=== PATIENT | male | born 1965 | race Caucasian/White ===

== ENCOUNTER → 2016-11-09 | Outpatient (CLI) | payer OTHER ==
[~2016-11-09] MED LIST: LIDOCAINE 1% MDV 20ML VIAL As Ordered ONE
--- NOTE | 2016-11-09 17:56 | REP ---
RIGHT THYROID FINE-NEEDLE ASPIRATION: The procedure was performed by ROYAL Paiz under the direct supervision of Dr. Moraes. The procedure along with its risks, benefits, and complications were discussed with the patient prior to the examination. Informed consent was obtained both verbally and written. The patient was identified in the ultrasound suite and placed in a supine position. A procedural time out was performed to ensure that the correct, site and procedure were being performed. Using real-time ultrasonography, the appropriate location was chosen for needle entry. This area was marked prepped and draped in the usual sterile fashion. Local infiltrative anesthesia was achieved using 1% Xylocaine. 4 passes with 25-gauge needles were made into the nodule of question. The samples were placed in [facility] and sent to the laboratory for further evaluation. Results pending. The patient tolerated the procedure well and had no immediate complications. Reviewed by ROYAL Fletcher 11/09/2016 06:45 PEdited and Signed by Pedrito Moraes MD 11/10/2016 04:59 P
== END ==
LOC: M RADPRO 07:54
PROVIDERS: ATTEND Family Medicine
DX: E04.1 Nontoxic single thyroid nodule (principal); E04.2 Nontoxic multinodular goiter; Z87.891 Personal history of nicotine dependence; Z79.899 Other long term (current) drug therapy

== ENCOUNTER → 2017-05-02 | Outpatient (CLI) | payer OTHER | LOC: M RAD 07:53 | DX: E03.9 Hypothyroidism, unspecified (principal) ==

== ENCOUNTER → 2020-06-20 | Outpatient (CLI) | payer OTHER ==
--- NOTE | 2020-06-20 10:45 | REP ---
INDICATION: HYPOTHYROIDISM, NODULE. COMPARISON: 05/02/2017. TECHNIQUE: Real-time sonographic evaluation of thyroid performed. FINDINGS: Right lobe measures 4.3 x 1.7 x 1.8 cm. Left lobe measures 3.6 x 1.4 x 1.6 cm. There is a stable oval hypoechoic nodule superiorly in the right lobe 7 x 3 x 7 mm. There is a stable slightly hypoechoic nodule in the right lower pole measuring 1.5 x 0.9 x 1.2 cm. There is a probable small lymph node just inferior to the left lobe 6 x 4 x 6 mm. IMPRESSION: Stable nodules right lobe thyroid. <Electronically signed by Pedrito Moraes > 06/20/20 [id number]
== END ==
LOC: M RAD 09:13
PROVIDERS: ATTEND Family Medicine
DX: E03.9 Hypothyroidism, unspecified (principal); E04.1 Nontoxic single thyroid nodule

== ENCOUNTER → 2020-09-08 | Outpatient (CLI) | payer OTHER ==
--- NOTE | 2020-09-08 14:24 | REP ---
INDICATION: LEFT KNEE OSTEOARTHRITIS. COMPARISON: None. TECHNIQUE: Four views FINDINGS: There is minimal tricompartmental marginal osteophyte formation. There is no significant compartmental narrowing. There is no acute fracture, dislocation, or subluxation. IMPRESSION: Very early degenerative changes. <Electronically signed by Ronni Quiñonez > 09/08/20 [id number]
== END ==
LOC: M SOG 13:11
PROVIDERS: ATTEND Orthopaedic Surgery Sports Medicine
DX: M17.12 Unilateral primary osteoarthritis, left knee (principal)

== ENCOUNTER → 2020-09-18 | Outpatient (CLI) | payer OTHER ==
[2020-09-18 18:56] LABS: SOURCE, BODY FLUID LFT KNEE; SYNOVIAL FLUID COLOR YELLOW (COLORLESS)
[2020-09-18 19:29] LABS: CRYSTALS, BODY FLUID NONE SEEN (NONE SEEN); SOURCE, BODY FLUID CRYSTALS LFT KNEE
[2020-09-19 10:45] LABS: BODY FLUID RHEUMATOID SCREEN NEGATIVE (NEGATIVE); MUCIN CLOT TEST 4+ (4+)
[2020-09-22 15:10] LABS: Lyme Disease IgG/IgM Antibodie <0.91 ISR (0.00-0.90); Lyme Disease IgM Ab Quantitati <0.80 index (0.00-0.79)
== END ==
LOC: M PLALAB 12:12
PROVIDERS: ATTEND Orthopaedic Surgery
DX: M25.562 Pain in left knee (principal)

== ENCOUNTER 2020-09-23 08:18 | Outpatient (CLI) | payer OTHER ==
[~2020-09-23] VITALS: Ht 182.9 cm; Wt 113.6 kg
[2020-09-23] MEDS ORDERED: DALBAVANCIN 1,500 MG in D5W 250 ML IV ONE (08:40)
[2020-09-23 10:00] VITALS: BP 138/88
== END 2020-09-23 10:00 | disposition home or self-care (01) ==
LOC: M INFU 08:18
PROVIDERS: ATTEND Orthopaedic Surgery
DX: M25.562 Pain in left knee (principal); M94.262 Chondromalacia, left knee; M25.462 Effusion, left knee
CPT/HCPCS: 96365; J0875

== ENCOUNTER 2020-10-01 10:53 | Outpatient (CLI) | payer OTHER ==
[~2020-10-01] VITALS: Ht 182.9 cm; Wt 113.5 kg
[2020-10-01 10:55] VITALS: BP 135/91
[2020-10-01] MEDS ORDERED: DALBAVANCIN 1,500 MG in D5W 250 ML IV ONE (11:00)
[2020-10-01 11:48] LABS: BASO # 0.1 10^3/uL (0.0-0.2); EOS # 0.3 10^3/uL (0.0-0.5); EOS % 3.3 % (0.0-3.0); HEMATOCRIT 41.8 % (42.0-52.0); HEMOGLOBIN 13.5 g/dl (13.5-17.5); LYMPH # 1.5 10^3/uL (1.5-5.0); LYMPH % 18.6 % (24.0-44.0); MEAN CORPUSCULAR HEMOGLOBIN 28.8 pg (27.0-33.0); MEAN CORPUSCULAR HGB CONC 32.3 g/dl (32.0-36.5); MEAN CORPUSCULAR VOLUME 89.3 fl (80.0-96.0); MONO # 0.6 10^3/uL (0.0-0.8); MONO % 7.5 % (2.0-8.0); NEUTROPHILS # 5.5 10^3/uL (1.5-8.5); NEUTROPHILS % 69.1 % (36.0-66.0); PLATELET COUNT, AUTOMATED 617 10^3/uL (150-450); RED BLOOD COUNT 4.68 10^6/uL (4.30-6.10); WHITE BLOOD COUNT 7.9 10^3/uL (4.0-10.0)
[2020-10-01 12:20] LABS: ERYTHROCYTE SEDIMENTATION RATE 51 mm/hr (0-20)
[2020-10-01 12:21] LABS: BLOOD UREA NITROGEN 10 MG/DL (7-18); CALCIUM LEVEL 8.7 MG/DL (8.5-10.1); CARBON DIOXIDE LEVEL 29 MEQ/L (21-32); CHLORIDE LEVEL 104 MEQ/L (98-107); CREATININE FOR GFR 0.87 MG/DL (0.70-1.30); GLOMERULAR FILTRATION RATE > 60.0 (>56); GLUCOSE, FASTING 92 MG/DL (70-100); SODIUM LEVEL 138 MEQ/L (136-145)
[2020-10-01 12:30] VITALS: BP 160/80
== END 2020-10-01 12:40 | disposition home or self-care (01) ==
LOC: M INFU 10:53
PROVIDERS: ATTEND Orthopaedic Surgery
DX: M00.262 Other streptococcal arthritis, left knee (principal)
CPT/HCPCS: 80048; 85025; 85652; 86140; 96365; J0875

== ENCOUNTER → 2020-10-08 | Outpatient (CLI) | payer OTHER ==
[~2020-10-08] MED LIST changes: +CEPH25SS PO; +HYDR-3713 PO; +INDO50CA91 PO; +LEVO50TA5 PO; +LORA-243 PO; +PANT40TA29 PO; +SODIUM BICARBONATE 8.4% INJ 50MEQ 50 ML VIAL As Ordered ONE
[2020-10-08 14:47] VITALS: BP 134/90
--- NOTE | 2020-10-08 15:59 | REP ---
PROCEDURE NAME: PICC LINE INSERTION W/SITERITE CLINICAL INFORMATION: MSSA LT KNEE. COMPARISON: None. PROCEDURE DESCRIPTION: The procedure was performed by ROYAL Leonardo, under the direct supervision of Dr. Davis. The risks and benefits of the procedure were explained to the patient and an informed consent was obtained both verbally and written. Directly prior to the start of the procedure a formal time-out was completed in the procedure room. The left basilic vein was localized using ultrasound guidance. The skin was prepped and draped in sterile fashion. One mL of 1% lidocaine 10 mg/mL was used as a local anesthetic. Using ultrasound guidance the left basilic vein was cannulated, and a 0.018 guidewire was inserted and advanced to the level of SVC using fluoroscopic guidance. The needle was removed and a 5.5 Malaysian dilator and peel-away sheath was inserted over the guidewire. A 5.5 Malaysian dual lumen catheter was cut to a length of 50 cm. The dilator was removed and the catheter was inserted over the guidewire with the tip ending at the level of the SVC. The peel-away sheath was removed and the catheter was flushed with heparinized saline as per hospital protocol. The catheter was affixed to the skin and a sterile dressing was applied. The patient tolerated the procedure well and there were no immediate complications. CONCLUSION: PICC line insertion into the left basilic vein. 0.1 minutes of fluoroscopy time was utilized for this procedure. Some fluoroscopic images are performed with last image hold technology. These images require no additional radiation. <Electronically signed by Nhua Gresham > 10/08/20 [id number] <Electronically signed by Avinash Davis > 10/08/20 [id number]
== END ==
LOC: M IRPRO 13:35
PROVIDERS: ATTEND Internal Medicine Infectious Disease
DX: A49.01 Methicillin susceptible Staphylococcus aureus infection, unspecified site (principal)
CPT/HCPCS: 36571; 76937; C1751; J1642; J1644

== ENCOUNTER → 2021-08-10 | Outpatient (CLI) | payer OTHER ==
[~2021-08-10] MED LIST changes: -LIDOCAINE 1% MDV 20ML VIAL As Ordered ONE; -SODIUM BICARBONATE 8.4% INJ 50MEQ 50 ML VIAL As Ordered ONE
== END ==
LOC: M RAD 09:47
PROVIDERS: ATTEND Family Medicine
DX: E03.9 Hypothyroidism, unspecified (principal); E04.1 Nontoxic single thyroid nodule